=== PATIENT | male | born 1980 | race Caucasian/White ===

== ENCOUNTER 2024-06-03 01:50 | Emergency (ER) | payer BC, SELFPAY ==
--- OUTSIDE RECORDS SUMMARY | 2024-06-03 01:53 | XMS_ITS | Clinical Summary ---
Author Organization [employer] 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 Max acetaminophen dose: 4000mg in 24 hrs. 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 Gender Identity Not on file Sexual Orientation Not on file Obstetrics History Last Filed Vital Signs Vital Sign Reading Time Taken Comments Blood Pressure 147/98 10/19/2013 1:22 AM CDT Pulse 92 10/19/2013 1:22 AM CDT Temperature 36.7 C (98.1 F) 10/19/2013 12:10 AM CDT Respiratory Rate 18 10/19/2013 1:22 AM CDT Oxygen Saturation 95% 10/19/2013 1:22 AM CDT Inhaled Oxygen Concentration - - Weight 97.5 kg (215 lb) 10/19/2013 12:10 AM CDT Height 182.9 cm (6') 10/19/2013 12:10 AM CDT Body Mass Index 29.16 10/19/2013 12:10 AM CDT Plan of Treatment Health Maintenance Due Date Last Done Comments Tdap 12/08/1991 Depression screening for age 12+ 1992 HIV for age 15-65 12/08/1995 BMI (ht and wt on same day) for age 18+ 1998 Hepatitis C screening for ag e 18-79 1998 Tetanus booster 2000 Lipids for age 35-44 12/08/2015 COVID-19 vaccine series (2023- season) 2023 Influenza for age 9-49 12/04/2023 Pneumococcal series for age 6-49 Aged Out No longer eligible based on patient's age to complete this topic Insurance [facility] Care Teams Liquor Grinding Mill Operator Relationship Specialty Start Date End Date Sreekanth Alexandre MD PCP - General Family Practice 10/19/13
--- OUTSIDE RECORDS SUMMARY | 2024-06-03 01:54 | XMS_ITS | Clinical Summary ---
Author Organization [facility] Address [address] [place] [address] Support Name Relationship Address Phone Kait Ramirez Emergency Contact [address] [address] 12/06 Declined Emergency Contact Unknown Unavailabl e Care Team Providers Care Assembler Bicycle Name Role Phone Marcos Hill MD Primary Care Provider [phone] Source Comments You are receiving this document as you are listed as the primary care provider,follow-up provider, or the patient has been referred to you for consultation.This is in compliance with the Medicare and[facility] E[facility] Incentive Program,which states Providers who transition their patient to another setting of careor provider of care or refers their patient to another provider of care shouldprovide summary care record for each transition of care or referral. [employer] Allergies No known active allergies Medications * This document contains information received from the source organization and may not represent a complete record from that organization. fexofenadine (TRISHA) 180 MG tablet Take 1 Tablet (180 mg) by mouth daily as needed. Active fluticasone propionate (FLONASE) 50 MCG/ACT nasal solutionIndication s:Allergic rhinitis, unspecified seasonality, unspecified trigger,Rhinitis medicamentosa Place 2 Sprays into both nostrils daily. 48 g 3 2 Active sertraline (ZOLOFT) 100 MG tablet Take 2 Tablets (200 mg) by mouth daily. 180 Tablet 3 4 07/14/19 25 Active mirtazapine (REMERON) 15 MG tablet TAKE 1 TABLET (15 MG) BY MOUTH DAILY AT BEDTIME. 90 Tablet 2 4 01/19/20 25 Active pramipexole (MIRAPEX) 0.25 MG tablet TAKE 1 TABLET (0.25 MG) BY MOUTH DAILY AT BEDTIME. 90 Tablet 2 4 01/19/20 25 Active Active Problems Problem Noted Date Diagnosed Date Persistent depressive disorder 01/24/2024 Insomnia, unspecified type 11/22/2023 Allergic rhinitis 09/17/2021 Rhinitis medicamentosa 09/17/2021 SHANITA (generalized anxiety disorder) 12/06/2017 Chronic alcoholism in remission 12/06/2017 Essential hypertension 03/02/2006 Overview (11/24/2016): Hypertension Restless legs syndrome Immunizations Immunization Administration Dates Next Due DTP 12/14/1985 H1N1 Preserv Free-Historical 03/31/2009 HepA-HepB (TWINRIX, 18+ yrs) 05/28/2005, 07/24/2003,05/23/2003,2002,11/13/2002 HepB Adult (Engerix-B, 20+ y rs, 3 dose series) 08/09/2003 Influenza (Flucelvax), Prese rv Free QIV 12/16/2022 Influenza IIV4 (Quadrivalent ) 0.5mL ([id number]) 02/23/2020,02/16/2019,01/31/2018,2013,02/03/2013 Influenza Vaccine Q/LAIV Int ranasal 2-49 yrs ([facility]) 02/25/2014 OPV, Trivalent (Orimune or tOPV) 12/14/1985 PPSV23 (Pneumovax) 06/07/2019 Pfizer Monovalent 12+ Purple Top 08/06/2020,07/03 Td 12/18/1999 Td (7+ yrs) 06/07/2019 Tdap 04/30/2009 Social History Tobacco Use Types Packs/Day Years Used Date Smoking Tobacco: Every Day Cigarettes Smokeless Tobacco: Never Tobacco Cessation:Ready to Q uit: Not Asked; Counseling Given: Not Answered Comments:I mostly vaporize my nicotine Alcohol Use Standard Drinks/Week Comments No 0 (1 standard drink = 0.6 oz pur e alcohol) PHQ-2 Answer Date Recorded PHQ-2 Score 2 01/24/2024 Sex and Gender Information Value Date Recorded Sex Assigned at Not on file Legal Sex Male 4:46 AM CDT Gender Identity Not on file Sexual Orientation Not on file Last Filed Vital Signs Vital Sign Reading Time Taken Comments Blood Pressure 127/81 11/24/2023 12:46 PM CDT Pulse 76 11/24/2023 12:46 PM CDT Temperature 37 C (98.6 F) 03/18/2021 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 SUPERVISOR Pt reported Respiratory Rate - - Oxygen Saturation 96% 09/17/2021 2:11 PM CDT Inhaled Oxygen Concentration - - Weight 93 kg (205 lb) 11/24/2023 12:46 PM CDT Height 182.9 cm (6') 07/08/2022 12:45 PM CDT per pt Body Mass Index 27.8 07/08/2022 12:45 PM CDT Plan of Treatment Health Maintenance Due Date Last Done Comments Hep C Screening (Preventive Services) 1980 IPV (Polio) (2 of 3 - 4-dose series) 01/11/1986 12/14/1985 Adult Preventive Visit 1998 Pneumococcal (2 of 2 - PCV) 06/06/2020 06/07/2019 COVID-19 Vaccine (3 - season) 2023 08/06/2020, 07/16/2020 Influenza (#1) 2023 12/16/2022, 02/03, 02/16/2019, Additional history exists Cholesterol 06/06/2024 06/07/2019 DTaP/Tdap/Td (4 - Tdap) 06/06/2029 06/07/19 20, 04/30/2009, 12/18/1999, Additional history exists Zoster/Shingles (1 of 2) 2030 HepA Completed 05/28/2005, 07/04, 05/23/2003, Additional history exists HepB Completed 05/28/2005, 10/2003, 07/24/2003, Additional history exists HIV Screening (Preventive Services) Completed 06/07/2019 HPV Vaccine Aged Out No longer eligi ble based on patient's age to complete this topic Hib Aged Out No longer eligi ble based on patient's age to complete this topic MCV4 Aged Out No longer eligi ble based on patient's age to complete this topic Meningococcal B Aged Out No longer el igible based on patient's age to complete this topic Procedures Procedure Name Priority Date/Time Associated Diagnosis Comments HIV 1/2 AG/AB 4TH GEN Routine 06/07/2019 11:34 AM SUPERVISOR Screening for HIV (human immunodeficiency virus) LIPID PANEL & DIRECT LDL (IF NEEDED) Routine 06/07/2019 11:34 AM SUPERVISOR Screening for cholesterol level from Last 3 Months or Most Recently Relevant to Health Maintenance Results * HIV 1/2 Ag/Ab 4th Generation (06/07/2019 11:34 AM SUPERVISOR) HIV 1/2 Antigen/Antib elissa (4th generation) Negative (Non Reactive) Negative (Non Reactive) 06/07/2019 3:28 PM SUPERVISOR [facility] Comment:HIV-1 p24 Antigen an d HIV-1/HIV-2 Antibody not detected Blood Venipuncture / Unknown 06/07/2019 11:34 AM SUPERVISOR 06/07/2019 11:34 AM SUPERVISOR us Marcos Hill MD LAB_1 Final Res ult [facility] [address] * (ABNORMAL) Lipid Panel and Direct LDL(If Needed) (06/07/2019 11:34 AM SUPERVISOR) Cholesterol 226(H) 0 - 199 mg/dL 06/07/2019 2:50 PM SUPERVISOR [facility] Triglyceride 97 <=149 mg/dL 06/07/2019 2:50 PM SUPERVISOR [facility] HDL Cholesterol 52 >=40 mg/dL 0 2:50 PM SUPERVISOR [facility] LDL, Calculated 155(H) <130 mg/dL 0 2:50 PM SUPERVISOR [facility] Non HDL Chol, Calculated 174 mg/dL 06/07/2019 2:50 PM SUPERVISOR [facility] Cholesterol/HDL Ratio 4.3 06/07/2019 2:50 PM SUPERVISOR [facility] Hours Fasting 12 06/07/2019 2:50 PM SUPERVISOR [facility] Blood Venipuncture / Unknown 06/07/2019 11:34 AM SUPERVISOR 06/07/2019 11:34 AM SUPERVISOR us Marcos Hill MD LAB_1 Final Res ult [facility] [address] [place] [address], [facility] [phone] [facility] [address] [place] [address], [facility] [phone] from Last 3 Months or Most Recently Relevant to Health Maintenance Insurance [facility] Care Teams Assembler Bicycle Relationship Specialty Start Date End Date Marcos Hill MD [address] [place] [address] PCP - General Family Practice 12/06/17
[2024-06-03 01:59] VITALS: BP 133/94; PULSE 88; RESP 16; TEMP 36.4; O2SAT 98; BMI 27.5
--- NOTE | 2024-06-03 02:22 | ED.GENADULT ---
HPI - General Adult General Chief complaint: Dental/Oral/Mouth Injury/Pain Stated complaint: toothache - R side Time Seen by Provider: 06/03/24 01:58 Source: patient Mode of arrival: ambulatory Limitations: no limitations History of Present Illness HPI narrative: 43-year-old male presents to the emergency department in the wee hours with complaints of right lower jaw discomfort from what he believes is a tooth infection for the past 2 days. He took 800 mg of ibuprofen about 7 hours prior to arrival, has not tried Tylenol. Could not fall asleep due to the pain and comes to the ED. No fevers. No nausea or vomiting. No severe weakness. No neurological changes or neck stiffness. No difficulty swallowing or breathing. No trauma or injury. No other teeth currently affected. Has been having some issues with that lower jaw on an ongoing basis since fall but has been seeing his dentist for it and symptoms had initially improved. No drug allergies. Reports that he does have a history of prior depression and anxiety. Takes mirtazapine, Mirapex, and sertraline. No recent changes to medications. Reports a history of alcoholism in the past, not recent. Does have a dental appointment for 2 days from now. ROS is notable only for the dental pain. Negative for other generalized, HEENT, neurological or respiratory changes. Related Data Home Medications ?Medication ?Instructions ?Recorded ?Confirmed mirtazapine 15 mg tablet mg 06/03/24 pramipexole 0.25 mg tablet mg 06/03/24 sertraline 100 mg tablet mg 06/03/24 Allergies Allergy/AdvReac Type Severity Reaction Status Date / Time No Known Drug Allergies Allergy Verified 06/03/24 02:02 [facility] Social History Smoking Status: Former smoker How often do you have a drink containing alcohol: never How often do you have six or more drinks on one occasion: Never AUDIT-C Alcohol total score: 0 Non-prescribed substance use: marijuana (any form) Exam Const: Vital Signs, click to edit/add: Vital Signs - 24 hr 06/03/24 01:59 Temperature 97.5 F L Pulse Rate [Pulse Oximeter] 88 Respiratory Rate 16 Blood Pressure [Ri ght Upper Arm] 133/94 H Pulse Oximetry 98 Oxygen Delivery Me thod Room Air Documenting provider has reviewed patient's vital signs: yes Common normals: no apparent distress and alert Other: Insight fair. Appears well nourished and well hydrated, no signs of intoxication. Cooperative and polite. HENMT: Common normals: normocephalic and moist oral mucous membranes Head and scalp: normocephalic Other: Previous dental caries in lots of evidence of prior dental work. The area in question has redness and swelling along the right lower 1st molar area. There has been a previous dental extraction in this area but the accompanying surrounding area with signs of inflammation. No purulent drainage or fluctuant area. Normal tongue, no swelling. All other areas of come and teeth appear noninflamed at this time. Eye: Common normals: conjunctivae normal General eye: normal appearance of both eyes Conjunctiva: conjunctiva(e) normal Neck & C-Spine: Other: Mild submandibular lymphadenopathy bilateral. No anterior cervical lymphadenopathy. Normal range of motion. No visible swelling. Resp: Common normals: normal respiratory effort, no use of accessory muscles and clear to auscultation bilaterally Effort & inspection: able to speak in complete sentences Auscultation: clear to auscultation bilaterally Cardio: Common normals: regular rate, regular rhythm, S1 normal heart sound, S2 normal heart sound and no murmurs Rate: regular rate Rhythm: regular rhythm Heart sounds: S1 normal and S2 normal Neuro: Common normals: moves all extremities and no focal motor deficits Sensorium/orientation: alert Speech: speech normal Psych: Common normals: speech normal Activity/motor behavior: appropriate eye contact Speech: normal speech Insight: fair Judgement: fair Skin: Common normals: no rashes or lesions noted General skin exam: no rashes or lesions noted Course Course ED Course: 43-year-old male with toothache and evidence of some mild gum inflammation. No signs of severe abscess or infection, no airway swelling. Counseled patient that I cannot offer him definitive care in the emergency department, he will need to follow up with his dentist. I recommended a temporary supply of antibiotics with amoxicillin 1000 b.i.d. for 1 week and have counseled patient on appropriate dosing and timing of Tylenol and ibuprofen. I have given him a supply of for oxycodone tablets. And will give him 1000 mg of Tylenol here in the ED. When he gets home, he will take 1 oxycodone and another 600 mg of ibuprofen and start his antibiotic. Keep his follow-up appointment in 2 days with the dentist as is plan. Alarm symptoms reviewed that would warrant ED presentation, written instructions provided. Vital Signs Vital signs: Initial Vital Signs Temperature 97.5 F L 06/03/24 01:59 Temperature Source Temporal Artery Scan 06/03/24 01:59 Pulse Rate 88 06/03/24 01:59 Respiratory Rate 16 06/03/24 01:59 Blood Pressure 133/94 H 06/03/24 01:59 Blood Pressure Mean 107 H 06/03/24 01:59 Blood Pressure Position Sitting 06/03/24 01:59 Pulse Oximetry 98 06/03/24 01:59 Oxygen Delivery Method Room Air 06/03/24 01:59 Vital Signs Temperature 97.5 F L 06/03/24 01:59 Pulse Rate 88 06/03/24 01:59 Respiratory Rate 16 06/03/24 01:59 Blood Pressure 133/94 H 06/03/24 01:59 Pulse Oximetry 98 06/03/24 01:59 Oxygen Delivery Method Room Air 06/03/24 01:59 Temperature 97.5 F L 06/03/24 01:59 Pulse Rate 88 06/03/24 01:59 Respiratory Rate 16 06/03/24 01:59 Blood Pressure 133/94 H 06/03/24 01:59 Pulse Oximetry 98 06/03/24 01:59 Oxygen Delivery Method Room Air 06/03/24 01:59 Medications Administered Medications: Discontinued Medications Generic Name Dose Route Start Last Admin Trade Name Freq PRN Reason Stop Dose Admin Acetaminophen 1,000 mg 06/03/24 02:21 06/03/24 02:41 Acetaminophen 500 Mg Tablet PO 06/03/24 02:22 Not Given ONCE ONE Discharge Plan Discharge Clinical Impression: Toothache Patient Disposition: Home, Self-Care Condition: Stable Instructions: Toothache (ED) Additional Instructions: As we discussed, there are no signs of dangers complication. He has an emergency room physician, I am not trained as a dentist and not able to give you definitive treatment for your tooth condition. I can give you temporary medications to help relieve some of the pain and inflammation but you will still need to keep your appointment on Tuesday with your dental provider. I will start you on antibiotic, amoxicillin. Take 2 pills 2 times daily. Try to take her 1st dose right away and then space next dose out about 12 hours. After that, you can push things to a more preferred every 12 hour schedule that does not involve the wee hours of the morning. The inflammation typically starts to calm down 36-48 hours after starting the antibiotic. For pain, you should be taking ibuprofen 600 mg every 6 hours. Add in Tylenol 1000 mg every 6 hours, alternating between the 2 for best results. I will give you a very limited supply of pain medication. Those can be addictive when used for more than just a few days. Take 1 tablet when you get home tonight in addition to another 600 mg of ibuprofen. You should come to the emergency department if you have symptoms of severe infection, are unable to swallow, have high fevers or significant neck stiffness. You may return to all unrestricted work/school activities. Activity Level: No Restrictions Discharge Diet: Regular Prescriptions: No Action sertraline 100 mg tablet pramipexole 0.25 mg tablet Patient Comments: [NO ORIGINAL SIG] mirtazapine 15 mg tablet Stand Alone Forms: [employer] Interactive Info Instructions
== END 2024-06-03 02:42 | disposition home or self-care (01) ==
PROVIDERS: Emergency Provider Family Medicine
DX: K08.89 Other specified disorders of teeth and supporting structures (principal)
CPT/HCPCS: 99283